=== PATIENT | male | born 1980 | race American Indian/Alaskan Native ===

== ENCOUNTER 2020-12-17 12:14 | Emergency (ER) | payer OTHER ==
[2020-12-17 13:09] VITALS: BP 143/80
--- NOTE | 2020-12-17 15:38 | Emergency Department Report ---
ED Head Trauma HPI - General Chief complaint: Head Injury Stated complaint: HEAD AND NECK INJURY Time Seen by Provider: 12/17/20 15:32 Source: patient Mode of arrival: Ambulatory Limitations: No Limitations - History of Present Illness Initial comments: Patient is a 40-year-old male who presents emergency room with complaints of a head injury that occurred last night around 7 PM last night. He states that he missed stepped off of a dock and hit his head against the concrete. He states he was immediately able to get up. He denies any loss of consciousness, vomiting, vision changes, numbness, weakness, bowel or bladder incontinence, any other injury. No past medical history. No allergies to medications. - Related Data Previous Rx's Medication Instructions Recorded Last Taken Type Acetaminophen [Tylenol] 650 mg PO Q8HR PRN #20 capsule 12/17/20 Unknown Rx methOCARBAMOL [Robaxin TAB] 500 mg PO BID PRN #20 tab 12/17/20 Unknown Rx Allergies/Adverse reactions: Allergies Allergy/AdvReac Type Severity Reaction Status Date / Time No Known Allergies Allergy Unverified 12/17/20 12:58 ED Review of Systems ROS: Stated complaint: HEAD AND NECK INJURY Other details as noted in HPI Comment: All other systems reviewed and negative ED Past Medical Hx - Past Medical History Previous Medical History?: No - Surgical History Past Surgical History?: No - Medications Home Medications: Home Medications Medication Instructions Recorded Confirmed Last Taken Type Acetaminophen [Tylenol] 650 mg PO Q8HR PRN #20 capsule 12/17/20 Unknown Rx methOCARBAMOL [Robaxin TAB] 500 mg PO BID PRN #20 tab 12/17/20 Unknown Rx ED Physical Exam - General Limitations: No Limitations General appearance: alert, in no apparent distress - Head Head exam: Present: other (small 2 cm area of edema present to the left temporal region just above the left ear, no abrasion or laceration, no skull or facial bony ttp, no crepitus, no deformity) - Eye Eye exam: Present: normal appearance, PERRL, EOMI, other (no racoon eyes). Absent: periorbital swelling, periorbital tenderness Pupils: Present: normal accommodation - ENT ENT exam: Present: mucous membranes moist, other (no doshi signs ) - Neck Neck exam: Present: normal inspection, full ROM, other (pt was initially in c- collar, he has no midline or paraspinal c-spine ttp, no step offs, no deformities ). Absent: tenderness, meningismus - Respiratory Respiratory exam: Present: normal lung sounds bilaterally. Absent: respiratory distress, wheezes, rales, rhonchi, stridor, chest wall tenderness, accessory muscle use, decreased breath sounds, prolonged expiratory - Cardiovascular Cardiovascular Exam: Present: regular rate, normal rhythm, normal heart sounds. Absent: systolic murmur, diastolic murmur, rubs, gallop - Back Exam Back exam: Present: normal inspection, full ROM. Absent: paraspinal tenderness, vertebral tenderness - Neurological Exam Neurological exam: Present: alert, oriented X3, CN II-XII intact, normal gait. Absent: motor sensory deficit - Psychiatric Psychiatric exam: Present: normal affect, normal mood - Skin Skin exam: Present: warm, dry, intact ED Course Vital Signs 12/17/20 13:08 Temperature 98.4 F Pulse Rate 82 Respiratory 16 Rate Blood Pressure 143/80 [Right] O2 Sat by Pulse 99 Oximetry - Radiology Data Radiology results: report reviewed Ordering Physician: FINA SAAB Date of Service: 12/17/20 Procedure(s): CT head/brain wo con Accession Number(s): [id number] cc: FINA SAAB NONENHANCED CT SCAN OF THE HEAD: INDICATION / CLINICAL INFORMATION: 40 years Male; hit head, small left temporal edema above ear. TECHNIQUE: Routine CT head without contrast. All CT scans at this location are performed using CT dose reduction for ALARA by means of automated exposure control. COMPARISON: None. FINDINGS: BRAIN / INTRACRANIAL CONTENTS: No intracranial sequela from the trauma; no fluid level in the visualized portions of the paranasal sinuses; no obvious scalp hematoma; No acute hemorrhage, mass effect, midline shift, hydrocephalus, or acute, large territorial infarct. No chronic infarct or focal atrophy. Normal brain volume and ventricular/sulcal size for age. No significant white matter abnormality. CRANIOCERVICAL JUNCTION: No significant abnormality. ORBITS: No significant abnormality of visualized orbits. SINUSES / MASTOIDS: No significant abnormality of the visualized paranasal sinuses or mastoid air cells. ADDITIONAL FINDINGS: None. IMPRESSION: No intracranial sequela from the trauma; no focal parenchymal lesion Signer Name: Yenifer Farley MD Signed: 12/17/2020 4:57 PM Workstation Name: [id number] Transcribed By: BS Dictated By: Yenifer Sepulveda MD Electronically Authenticated By: Yenifer Sepulveda MD Signed Date/Time: 12/17/201656 DD/ 53 TD/TT: Print - Medical Decision Making Patient is a 40-year-old male who presents emergency room with complaints of a head injury that occurred last night around 7 PM last night. He states that he missed stepped off of a dock and hit his head against the concrete. He states he was immediately able to get up. He denies any loss of consciousness, vomiting, vision changes, numbness, weakness, bowel or bladder incontinence, any other injury. No past medical history. No allergies to medications. Vitals are stable. On exam:small 2 cm area of edema present to the left temporal region just above the left ear, no abrasion or laceration, no skull or facial bony ttp, no crepitus, no deformity, pt was initially in c-collar, he has no midline or paraspinal c-spine ttp, no step offs, no deformities, no raccoon eyes, no doshi signs, no focal neuro deficits, patient is able to ambulate. CT head without contrast: No intracranial sequela from the trauma; no focal parenchymal lesion. Nexus criteria negative, C-spine can be cleared clinically. Discussed all results with patient and answer questions. Patient given prescription for medication. Advised patient Please take medication as prescribed as needed. Do not drive or operate heavy machinery while taking muscle relaxer Robaxin. Follow-up with a primary care doctor. Return to emergency room for any new or worsening symptoms. - NEXUS Criteria Focal neurological deficit present: No Midline spinal tenderness present: No Altered level of consciousness: No Intoxication present: No Distracting injury present: No NEXUS results: C-Spine can be cleared clinically by these results. Imaging is not required. Critical care attestation.: If time is entered above; I have spent that time in minutes in the direct care of this critically ill patient, excluding procedure time. ED Disposition Clinical Impression: Head injury Qualifiers: Encounter type: initial encounter Qualified Code(s): S09.90XA - Unspecified injury of head, initial encounter Disposition: - TO HOME OR SELFCARE Is pt being admited?: No Does the pt Need Aspirin: No Condition: Stable Instructions: Head Injury, Adult Additional Instructions: Please take medication as prescribed as needed. Do not drive or operate heavy machinery while taking muscle relaxer Robaxin. Follow-up with a primary care doctor. Return to emergency room for any new or worsening symptoms. Prescriptions: methOCARBAMOL [Robaxin TAB] 500 mg PO BID PRN #20 tab PRN Reason: muscle spasm/pain Acetaminophen [Tylenol] 650 mg PO Q8HR PRN #20 capsule PRN Reason: pain Referrals: PRIMARY MD DAVIAN [Primary Care Provider] - 2-3 Days BRENDAN HARKINS MD [Staff Physician] - 2-3 Days [facility] [Provider Group] - 2-3 Days Forms: Work/School Release Form(ED) Time of Disposition: 17:19 Print Language: GREENLANDIC
--- NOTE | 2020-12-17 17:02 | Cat Scan Report ---
NONENHANCED CT SCAN OF THE HEAD: INDICATION / CLINICAL INFORMATION: 40 years Male; hit head, small left temporal edema above ear. TECHNIQUE: Routine CT head without contrast. All CT scans at this location are performed using CT dos e reduction for ALARA by means of automated exposure control. COMPARISON: None. FINDINGS: BRAIN / INTRACRANIAL CONTENTS: No intracranial sequela from the trauma; no fluid level in the visuali zed portions of the paranasal sinuses; no obvious scalp hematoma; No acute hemorrhage, mass effect, midline shift, hydrocephalus, or acute, large territorial infarct. No chronic infarct or focal atrophy. Normal brain volume and ventricular/sulcal size for age. No sig nificant white matter abnormality. CRANIOCERVICAL JUNCTION: No significant abnormality. ORBITS: No significant abnormality of visualized orbits. SINUSES / MASTOIDS: No significant abnormality of the visualized paranasal sinuses or mastoid air bryon ls. ADDITIONAL FINDINGS: None. IMPRESSION: No intracranial sequela from the trauma; no focal parenchymal lesion Signer Name: Yenifer Farley MD Signed: 12/17/2020 4:57 PM Workstation Name: [id number]
== END 2020-12-17 17:21 | disposition home or self-care (01) ==
LOC: ED 12:14
DX: S09.90XA Unspecified injury of head, initial encounter (principal); Z79.899 Other long term (current) drug therapy; W01.198A Fall on same level from slipping, tripping and stumbling with subsequent striking against other object, initial encounter; Y93.89 Activity, other specified; Y92.89 Other specified places as the place of occurrence of the external cause; Y99.8 Other external cause status
CPT/HCPCS: 70450